=== PATIENT | female | born 1980 | race Caucasian/White ===

== ENCOUNTER 2017-10-22 20:32 | Emergency (ER) | payer OTHER ==
[~2017-10-22] VITALS: Ht 160 cm; Wt 51.8 kg
[2017-10-22] MEDS ORDERED: IBUPROFEN600 MG PO (23:07)
[2017-10-22 23:20] VITALS: BP 104/68
== END 2017-10-22 23:25 | disposition home or self-care (01) | DRG 206 ==
LOC: ED 20:32
DX: S22.32XA Fracture of one rib, left side, initial encounter for closed fracture (principal); W54.8XXA Other contact with dog, initial encounter; Y93.K1 Activity, walking an animal; Y92.410 Unspecified street and highway as the place of occurrence of the external cause

== ENCOUNTER 2018-12-10 21:50 | Emergency (ER) | payer OTHER ==
[~2018-12-10] VITALS: Ht 160 cm; Wt 52.4 kg
[~2018-12-10 21:50] MED LIST: IBUPROFEN600 MG PO
[2018-12-11] MEDS ORDERED: NAPROSYN500 MG PO (00:05)
[2018-12-11 00:19] VITALS: BP 124/71
== END 2018-12-11 00:19 | disposition home or self-care (01) | DRG 556 ==
LOC: ED 21:50
DX: M25.512 Pain in left shoulder (principal)